=== PATIENT | female | born 1980 | race American Indian/Alaskan Native ===

== ENCOUNTER 2018-09-03 21:18 | Outpatient (CLI) | payer OTHER ==
[2018-09-03] MEDS ORDERED: APRESOLINE IV ONE (22:50)
[2018-09-03] MEDS ORDERED: LACTATED RINGERS 1,000 ML ONE (23:30)
[2018-09-03 23:47] LABS: Basophils % (Auto) 0.7 % (0.0-1.8); Hematocrit 31.9 % (30.3-42.9); Hemoglobin 10.6 gm/dl (10.1-14.3); Lymphocytes # (Auto) 1.5 K/mm3 (1.2-5.4); Lymphocytes % (Auto) 29.3 % (13.4-35.0); Mean Corpuscular HGB Conc 33 % (30-34); Mean Corpuscular Volume 74 fl (79-97); Monocytes # (Auto) 0.4 K/mm3 (0.0-0.8); Monocytes % (Auto) 7.7 % (0.0-7.3); Platelet Count 327 K/mm3 (140-440); Red Blood Count 4.29 M/mm3 (3.65-5.03); Red Cell Distribution Width 15.4 % (13.2-15.2)
[2018-09-03 23:52] LABS: Alanine Aminotransferase 13 units/L (7-56); Albumin 3.2 g/dL (3.9-5); BUN/Creatinine Ratio 14; Blood Urea Nitrogen 10 mg/dL (7-17); Calcium 8.8 mg/dL (8.4-10.2); Hemolysis Index 80
[2018-09-04 00:16] VITALS: BP 190/111
== END 2018-09-04 00:30 | disposition home or self-care (01) ==
LOC: TRG 21:18
PROVIDERS: ATTEND Obstetrics & Gynecology
DX: O26.892 Other specified pregnancy related conditions, second trimester (principal); R19.8 Other specified symptoms and signs involving the digestive system and abdomen; O47.02 False labor before 37 completed weeks of gestation, second trimester; O09.512 Supervision of elderly primigravida, second trimester; O99.512 Diseases of the respiratory system complicating pregnancy, second trimester; J45.909 Unspecified asthma, uncomplicated; O10.912 Unspecified pre-existing hypertension complicating pregnancy, second trimester; Z3A.22 22 weeks gestation of pregnancy
CPT/HCPCS: 36415; 59025; 80053; 85025; 96374; J0360; J7120; 96360

== ENCOUNTER 2018-09-26 15:14 | Outpatient (CLI) | payer OTHER ==
[2018-09-26] MEDS ORDERED: LACTATED RINGERS 1,000 ML ONE (17:12)
[2018-09-26 18:12] VITALS: BP 133/76
[2018-09-26] MEDS ORDERED: LACTATED RINGERS 1,000 ML IV ONE (18:33)
[2018-09-26] MEDS ORDERED: LACTATED RINGERS 500 ML IV ONE (18:33)
== END 2018-09-26 18:44 | disposition home or self-care (01) ==
LOC: TRG 15:14
PROVIDERS: ATTEND Obstetrics & Gynecology
DX: O26.892 Other specified pregnancy related conditions, second trimester (principal); R42 Dizziness and giddiness; O47.02 False labor before 37 completed weeks of gestation, second trimester; O16.2 Unspecified maternal hypertension, second trimester; O99.512 Diseases of the respiratory system complicating pregnancy, second trimester; J45.909 Unspecified asthma, uncomplicated; Z3A.25 25 weeks gestation of pregnancy
CPT/HCPCS: 59025; J7120; 96360

== ENCOUNTER 2019-01-12 10:24 | Emergency (ER) | payer OTHER ==
[2019-01-12 10:31] VITALS: BP 170/100
[2019-01-12 10:47] LABS: Basophils % (Auto) 0.4 % (0.0-1.8); Eosinophils % (Auto) 0.5 % (0.0-4.3); Hematocrit 34.9 % (30.3-42.9); Hemoglobin 11.3 gm/dl (10.1-14.3); Lymphocytes # (Auto) 1.1 K/mm3 (1.2-5.4); Lymphocytes % (Auto) 11.7 % (13.4-35.0); Mean Corpuscular HGB Conc 33 % (30-34); Mean Corpuscular Volume 77 fl (79-97); Monocytes # (Auto) 0.4 K/mm3 (0.0-0.8); Platelet Count 287 K/mm3 (140-440); Red Blood Count 4.55 M/mm3 (3.65-5.03); Red Cell Distribution Width 13.6 % (13.2-15.2)
[2019-01-12 11:10] LABS: Alanine Aminotransferase 18 units/L (7-56); Albumin 3.6 g/dL (3.9-5); BUN/Creatinine Ratio 13; Blood Urea Nitrogen 10 mg/dL (7-17); Calcium 8.7 mg/dL (8.4-10.2); Hemolysis Index 3
[2019-01-12] MEDS ORDERED: KETOROLAC 30 MG/1 ML INJ IV ONE (11:38)
[2019-01-12 12:16] LABS: Bilirubin,Urine NEG (Negative); Blood,Urine NEG (Negative); Color,Urine Yellow (Yellow); Protein,Urine <15 mg/dL mg/dL (Negative)
[2019-01-12 12:22] LABS: HCG Qualitative,Urine Negative (Negative)
--- NOTE | 2019-01-12 13:02 | Cat Scan Report ---
CT ABDOMEN AND PELVIS WITH CONTRAST HISTORY: Pain after 1 month ago. Sudden onset of pain this morning. COMPARISON: None TECHNIQUE: Routine abdominal and pelvic CT exam performed following intravenous contrast administrat ion.. No oral contrast given. All CT scans at this location are performed using CT dose reduction for ALARA by means of automated exposure control. FINDINGS: CT ABDOMEN: Lung Bases: Clear. Liver: Normal. Biliary: Normal gallbladder and bile ducts. Spleen: Normal. Pancreas: Borderline large but no peripancreatic stranding or fluid. No pancreatic mass or cyst. Adrenals: No significant abnormality. Kidneys: A 1 mm right lower pole nonobstructive renal calculus. The left kidney is normal. Nondilated renal collecting systems and ureters. Lymphatics: No lymphadenopathy. Vasculature: No significant abnormality. Bowel/Peritoneum: Moderate fluid throughout the small bowel and right colon. However, minimal small b owel distention. No free air. No ascites. Normal appendix. CT PELVIC: : Normal uterus measuring 11.0 x 5.7 x 7.3 cm. The incision is unremarkable. Normal urina ry bladder. No pelvic mass or fluid. Normal ovaries. Lymphatics: No lymphadenopathy. GI: Normal rectum and sigmoid colon. Osseous Structures: No aggressive appearing osseous lesions. Additional Findings: None IMPRESSION: 1. Borderline large pancreas but no other signs to suggest acute pancreatitis. 2. A 1 mm right lower pole nonobstructive renal calculus. 3. Nonspecific fluid in the small bowel and colon. No bowel obstruction. 4. Normal postop uterus. 5. No abscess. Signer Name: Mu Dejesus MD Signed: 01/12/2019 12:57 PM Workstation Name: [id number]
--- NOTE | 2019-01-12 13:22 | Emergency Department Report ---
ED Abdominal Pain HPI - General Chief Complaint: Abdominal Pain Stated Complaint: C SECTION/PAIN Time Seen by Provider: 01/12/19 11:29 Source: patient Mode of arrival: Ambulatory Limitations: No Limitations - History of Present Illness Initial Comments: Patient is a 38-year-old black female who is complaining of some lower abdominal pain. Patient states pain started 2 days ago and is crampy in nature. States it's equal on the right and left bilateral lower quadrants. Patient states the pain is a 6 out of 10 in severity. Patient is one month and patient did have a . She states her scar appears normal. She denies dysuria or urinary frequency fevers chills nausea vomiting or diarrhea. Severity scale (0 -10): 6 - Related Data Home Medications Medication Instructions Recorded Confirmed Last Taken NIFEdipine XL [Procardia Xl] 30 mg PO QDAY 12/09/18 12/09/18 1 Day Ago ~12/08/18 labetaloL [Labetalol 200mg TAB] 600 mg PO BID 12/09/18 12/09/18 1 Day Ago ~12/08/18 Previous Rx's Medication Instructions Recorded Last Taken Type HYDROcodone/APAP 5-325 [[place] 1 - 2 each PO Q4HR PRN #30 tablet 12/10/18 Unknown Rx 5/325] Ibuprofen [Motrin 600 MG tab] 600 mg PO Q8H PRN #20 tablet 01/12/19 Unknown Rx traMADoL [Ultram] 50 mg PO Q6HR PRN #12 tablet 01/12/19 Unknown Rx Allergies Allergy/AdvReac Type Severity Reaction Status Date / Time No Known Allergies Allergy Verified 09/03/18 22:52 ED Review of Systems ROS: Stated complaint: C SECTION/PAIN Other details as noted in HPI Comment: All other systems reviewed and negative ED Past Medical Hx - Past Medical History Previous Medical History?: Yes Hx Hypertension: Yes Hx Congestive Heart Failure: No Hx Diabetes: No Hx Deep Vein Thrombosis: No Hx Renal Disease: No Hx Sickle Cell Disease: No Hx Seizures: No Hx Asthma: Yes Hx COPD: No Hx HIV: No - Surgical History Past Surgical History?: Yes Additional Surgical History: C section - Social History Smoking Status: Never Smoker - Medications Home Medications: Home Medications Medication Instructions Recorded Confirmed Last Taken Type NIFEdipine XL [Procardia Xl] 30 mg PO QDAY 12/09/18 12/09/18 1 Day Ago History ~12/08/18 labetaloL [Labetalol 200mg TAB] 600 mg PO BID 12/09/18 12/09/18 1 Day Ago History ~12/08/18 HYDROcodone/APAP 5-325 [[place] 1 - 2 each PO Q4HR PRN #30 tablet 12/10/18 Unknown Rx 5/325] Ibuprofen [Motrin 600 MG tab] 600 mg PO Q8H PRN #20 tablet 01/12/19 Unknown Rx traMADoL [Ultram] 50 mg PO Q6HR PRN #12 tablet 01/12/19 Unknown Rx ED Physical Exam - General Limitations: No Limitations General appearance: alert, in no apparent distress - Head Head exam: Present: atraumatic, normocephalic - Eye Eye exam: Present: normal appearance, PERRL, EOMI - ENT ENT exam: Present: mucous membranes moist - Neck Neck exam: Present: normal inspection - Respiratory Respiratory exam: Present: normal lung sounds bilaterally. Absent: respiratory distress, wheezes, rales, rhonchi - Cardiovascular Cardiovascular Exam: Present: regular rate, normal rhythm, normal heart sounds. Absent: systolic murmur, diastolic murmur, rubs, gallop - GI/Abdominal GI/Abdominal exam: Present: soft, tenderness (suprapubic and right and left l ower quadrant pain), normal bowel sounds. Absent: distended, guarding, rebound, rigid - Extremities Exam Extremities exam: Present: normal inspection - Back Exam Back exam: Present: normal inspection - Neurological Exam Neurological exam: Present: alert, oriented X3 - Psychiatric Psychiatric exam: Present: normal affect, normal mood - Skin Skin exam: Present: warm, dry, intact, normal color. Absent: rash ED Course Vital Signs 01/12/19 01/12/19 10:30 12:25 Temperature 98.9 F Pulse Rate 92 H Respiratory 18 16 Rate Blood Pressure 170/100 O2 Sat by Pulse 100 Oximetry ED Medical Decision Making - Lab Data Result diagrams: 01/12/19 10:35 01/12/19 10:35 Lab Results 01/12/19 01/12/19 01/12/19 Range/Units 10:35 10:35 11:43 WBC 9.6 (4.5-11.0) K/mm3 RBC 4.55 (3.65-5.03) M/mm3 Hgb 11.3 (10.1-14.3) gm/dl Hct 34.9 (30.3-42.9) % MCV 77 L (79-97) fl MCH 25 L (28-32) pg MCHC 33 (30-34) % RDW 13.6 (13.2-15.2) % Plt Count 287 (140-440) K/mm3 Lymph % (Auto) 11.7 L (13.4-35.0) % [place] % (Auto) 4.0 (0.0-7.3) % Eos % (Auto) 0.5 (0.0-4.3) % Baso % (Auto) 0.4 (0.0-1.8) % Lymph # 1.1 L (1.2-5.4) K/mm3 [place] # 0.4 (0.0-0.8) K/mm3 Eos # 0.0 (0.0-0.4) K/mm3 Baso # 0.0 (0.0-0.1) K/mm3 Seg Neutrophils % 83.4 H (40.0-70.0) % Seg Neutrophils # 8.0 H (1.8-7.7) K/mm3 Sodium 139 (137-145) mmol/L Potassium 3.9 (3.6-5.0) mmol/L Chloride 104.5 (98-107) mmol/L Carbon Dioxide 22 (22-30) mmol/L Anion Gap 16 mmol/L BUN 10 (7-17) mg/dL Creatinine 0.8 (0.7-1.2) mg/dL Estimated GFR > 60 ml/min BUN/Creatinine Ratio 13 % Glucose 85 (65-100) mg/dL Calcium 8.7 (8.4-10.2) mg/dL Total Bilirubin 0.50 (0.1-1.2) mg/dL AST 17 (5-40) units/L ALT 18 (7-56) units/L Alkaline Phosphatase 47 (35-129) units/L Total Protein 7.0 (6.3-8.2) g/dL Albumin 3.6 L (3.9-5) g/dL Albumin/Globulin Ratio 1.1 % Urine Color Yellow (Yellow) Urine Turbidity Clear (Clear) Urine pH 7.0 (5.0-7.0) Ur Specific [place] 1.016 (1.003-1.030) Urine Protein <15 mg/dl (Negative) mg/dL Urine Glucose (UA) Neg (Negative) mg/dL Urine Ketones Neg (Negative) mg/dL Urine Blood Neg (Negative) Urine Nitrite Neg (Negative) Urine Bilirubin Neg (Negative) Urine Urobilinogen 2.0 (<2.0) mg/dL Ur Leukocyte Esterase Neg (Negative) Urine WBC (Auto) 1.0 (0.0-6.0) /HPF Urine RBC (Auto) 1.0 (0.0-6.0) /HPF U Epithel Cells (Auto) 1.0 (0-13.0) /HPF Urine HCG, Qual Negative (Negative) - Radiology Data CT ABDOMEN AND PELVIS WITH CONTRAST HISTORY: Pain after 1 month ago. Sudden onset of pain this morning. COMPARISON: None TECHNIQUE: Routine abdominal and pelvic CT exam performed following intravenous contrast administration.. No oral contrast given. All CT scans at this location are performed using CT dose reduction for ALARA by means of automated exposure control. FINDINGS: CT ABDOMEN: Lung Bases: Clear. Liver: Normal. Biliary: Normal gallbladder and bile ducts. Spleen: Normal. Pancreas: Borderline large but no peripancreatic stranding or fluid. No pancrea tic mass or cyst. Adrenals: No significant abnormality. Kidneys: A 1 mm right lower pole nonobstructive renal calculus. The left kidney is normal. Nondilated renal collecting systems and ureters. Lymphatics: No lymphadenopathy. Vasculature: No significant abnormality. Bowel/Peritoneum: Moderate fluid throughout the small bowel and right colon. However, minimal small bowel distention. No free air. No ascites. Normal appendix. CT PELVIC: : Normal uterus measuring 11.0 x 5.7 x 7.3 cm. The incision is unremarkable. Normal urinary bladder. No pelvic mass or fluid. Normal ovaries. Lymphatics: No lymphadenopathy. GI: Normal rectum and sigmoid colon. Osseous Structures: No aggressive appearing osseous lesions. Additional Findings: None IMPRESSION: 1. Borderline large pancreas but no other signs to suggest acute pancreatitis. 2. A 1 mm right lower pole nonobstructive renal calculus. 3. Nonspecific fluid in the small bowel and colon. No bowel obstruction. 4. Normal postop uterus. 5. No abscess. - Medical Decision Making Patient is one month and the patient had a . Patient differential includes a wide array of conditions. CT was done to rule out infectious processes of the bowel, obstructive uropathy, inflammatory changes around the reproductive system. CT was essentially within normal limits. Patient's laboratory studies are unremarkable. Patient likely is the early stages of transitioning out of her body feeling as though is . Patient may develop some spotting in Radha's over the next several days. Patient also may be having some uterine cramping secondary to her surgery. Patient will be referred back to her SENIOR DESIGN ENGINEER for follow-up the patient given medication for symptomatic relief. - Differential Diagnosis endometritis dysmenorrhea and UTI intra-abdominal abscess or appendicitis Critical care attestation.: If time is entered above; I have spent that time in minutes in the direct care of this critically ill patient, excluding procedure time. ED Disposition Clinical Impression: Abdominal pain Disposition: DC-01 TO HOME OR SELFCARE Is pt being admited?: No Does the pt Need Aspirin: No Condition: Stable Instructions: Abdominal Pain (ED) Additional Instructions: He is follow with your SENIOR DESIGN ENGINEER in the next week Time of Disposition: 13:22
== END 2019-01-12 14:00 | disposition home or self-care (01) ==
LOC: ED 10:24
DX: R10.30 Lower abdominal pain, unspecified (principal)
CPT/HCPCS: 36415; 74177; 80053; 81001; 81025; 85025; 96374; 99284; J1885; Q9967